=== PATIENT | male | born 1995 | race African-American/Black ===

== ENCOUNTER 2021-12-02 00:43 | Emergency (ER) | payer SELFPAY ==
[2021-12-02] MEDS ORDERED: Lidocaine 1% w/Epinephrine 1:100K 20 ML VIAL ONE (01:44)
[2021-12-02] MEDS ORDERED: Ketorolac Tromethamine 30 MG/ML VIAL ONE (02:02)
== END 2021-12-02 02:32 | disposition home or self-care (01) ==
LOC: CSHERS 00:43
DX: K04.7 Periapical abscess without sinus (principal)
CPT/HCPCS: 41800; 96372; 99282; J1885